=== PATIENT | female | born 1955 | race Caucasian/White ===

== ENCOUNTER 2022-04-11 11:37 | Emergency (ER) | payer OTHER ==
[~2022-04-11] VITALS: Ht 157.5 cm; Wt 62.1 kg
[2022-04-11] MEDS ORDERED: COZAAR100 MG PO (11:56)
[2022-04-11] MEDS ORDERED: AMLOD-VALSA-HC1 EAC1 (11:56)
== END 2022-04-11 15:47 | disposition home or self-care (01) ==
LOC: ER 11:37
DX: J45.901 Unspecified asthma with (acute) exacerbation (principal)